=== PATIENT | female | born 1980 | race Caucasian/White ===

== ENCOUNTER 2016-10-09 21:27 | Emergency (ER) | payer SELFPAY ==
[2016-10-09] MEDS ORDERED: IBUPROFEN 800 MG TABLET PO ONE (21:41)
--- NOTE | 2016-10-09 21:42 | ER Document Report ---
ED Medical Screen (RME) - General Stated Complaint: RIGHT FOOT INJURY Mode of Arrival: Ambulatory Information source: Patient Notes: Patient reports getting hit in the foot with a softball yesterday. Right foot is painful and numb hx: None I have greeted and performed a rapid initial assessment of this patient. A comprehensive ED assessment and evaluation of the patient, analysis of test results and completion of the medical decision making process will be conducted by additional ED providers. TRAVEL OUTSIDE OF THE [place] IN LAST 30 DAYS: No - Related Data Allergies/Adverse Reactions: No Known Allergies Allergy (Verified 10/09/16 21:41) Past Medical History Past Surgical History: Reports: Hx Breast Surgery - BREAST REDUCTION - Immunizations Hx Diphtheria, Pertussis, Tetanus Vaccination: Yes Physical Exam - Vital signs Vitals: Temp Pulse Resp BP Pulse Ox 98.2 F 75 18 119/76 96 10/09/16 21:35 10/09/16 21:35 10/09/16 21:35 10/09/16 21:35 10/09/16 21:35 - Extremities General lower extremity: Tender - Right foot Course - Vital Signs Vital signs: Temp Pulse Resp BP Pulse Ox 98.2 F 75 18 119/76 96 10/09/16 21:35 10/09/16 21:35 10/09/16 21:35 10/09/16 21:35 10/09/16 21:35
--- NOTE | 2016-10-10 00:28 | ER Document Report ---
ED Extremity Problem, Lower - General Mode of Arrival: Ambulatory TRAVEL OUTSIDE OF THE [place] IN LAST 30 DAYS: No - HPI Location: Foot Occurred: Other - see HPI - General Chief Complaint: Foot Injury Stated Complaint: RIGHT FOOT INJURY Notes: Patient is a 36-year-old female presenting to the emergency department with complaints of bruising and numbness to her right foot. Patient states that yesterday her foot was hit with a softball. Patient states that she has been resting, icing her foot, and elevating her foot. Patient states she is concerned because her foot feels very numb and she has numbness into her toes. Patient is able to move her foot and ambulate on it. Patient states she does not currently have a PCP but that she was previously going to a doctor in [place]. (TAMEKA MORALES) - Related Data Allergies/Adverse Reactions: No Known Allergies Allergy (Verified 10/09/16 21:41) Past Medical History - General Information source: Patient - Social History Smoking Status: Never Smoker Cigarette use (# per day): No Chew tobacco use (# tins/day): No Frequency of alcohol use: None Drug Abuse: None Family History: None Past Surgical History: Reports: Hx Breast Surgery - BREAST REDUCTION - Immunizations Hx Diphtheria, Pertussis, Tetanus Vaccination: Yes Review of Systems - Review of Systems Constitutional: No symptoms reported EENT: No symptoms reported Cardiovascular: No symptoms reported Respiratory: No symptoms reported Gastrointestinal: No symptoms reported Genitourinary: No symptoms reported Female Genitourinary: No symptoms reported Musculoskeletal: See HPI Skin: See HPI Hematologic/Lymphatic: No symptoms reported Neurological/Psychological: No symptoms reported -: Yes All other systems reviewed and negative Physical Exam - Vital signs Interpretation: Normal - General General appearance: Appears well, Alert In distress: Mild - HEENT Head: Normocephalic, Atraumatic Eyes: Normal Pupils: PERRL Mucous membranes: Moist - Respiratory Respiratory status: No respiratory distress - Cardiovascular Rhythm: Regular - Abdominal Inspection: Normal - Back Back: Normal, Nontender - Extremities General upper extremity: Normal inspection, Normal ROM, Normal strength General lower extremity: Other - good pedis pulses and sensation bilaterally Foot: Ecchymosis - to the medial aspect of the right foot, Other - able to flexion/extension of the right foot as well as move toes on the right foot, patient also has a tattoo to her right foot - Neurological Neuro grossly intact: Yes Cognition: Normal Orientation: AAOx4 [place]aren Coma Scale Eye Opening: Spontaneous Daren Coma Scale Verbal: Oriented [place] Coma Scale Motor: Obeys Commands [place] Coma Scale Total: 15 Speech: Normal - Psychological Associated symptoms: Normal affect, Normal mood - Skin Skin Temperature: Warm Skin Moisture: Dry Course - Re-evaluation Re-evalutation: 10/10/16 Patient with Jackson foot. Otherwise neurovascularly intact. Patient has supportive footwear that she can wear. Patient is able to ambulate on her foot. Stable for discharge. No other injuries. (DORA PRATER) - Vital Signs Vital signs: Temp Pulse Resp BP Pulse Ox 97.8 F 71 16 110/71 98 10/10/16 00:55 10/10/16 00:55 10/10/16 00:55 10/10/16 00:55 10/10/16 00:55 (TAMEKA MORALES) (DORA PRATER) Discharge - Discharge Clinical Impression: Contusion of foot, right Qualifiers: Encounter type: initial encounter Qualified Code(s): S90.31XA - Contusion of right foot, initial encounter Condition: Stable Disposition: HOME, SELF-CARE Instructions: Contusion ([facility]) Forms: Return to Work Scribe Attestation: 10/10/16 05:00 I personally performed the services described in the documentation, reviewed and edited the documentation which was dictated to the scribe in my presence, and it accurately records my words and actions. (DORA PRATER) Scribe Documentation - Scribe Written by Scribe:: Tameka Morales 10/10/16 03:15 acting as scribe for :: Kim
[2016-10-10 00:58] VITALS: BP 110/71
== END 2016-10-10 01:00 | disposition home or self-care (01) ==
LOC: ER 21:27
DX: S90.31XA Contusion of right foot, initial encounter (principal); W21.07XA Struck by softball, initial encounter
CPT/HCPCS: 99283

== ENCOUNTER 2017-03-07 23:10 | Emergency (ER) | payer SELFPAY ==
[2017-03-08] MEDS ORDERED: CEPHALEXIN 500 MG CAPSULE PO ONE (01:38)
--- NOTE | 2017-03-08 01:39 | ER Document Report ---
ED General - General Chief Complaint: Insect Bite Stated Complaint: POSSIBLE INFECTED INSECT BITE Time Seen by Provider: 03/08/17 01:28 Notes: Patient is a 36 year old female who presents with concerns of a rash on her left upper extremity. Describes it as a dull, burning, constant pain. Nothing improves or worsens the pain. States that the area may have started as a bug bite and became subsequently infected. Denies any constitutional symptoms or fever. No history of similar symptoms in the past. She has been trying to treat with Benadryl without improvement. She has not seen her primary care doctor regarding these concerns. TRAVEL OUTSIDE OF THE [place] IN LAST 30 DAYS: No - Related Data Allergies/Adverse Reactions: No Known Allergies Allergy (Verified 10/09/16 21:41) Past Medical History - General Information source: Patient - Social History Smoking Status: Never Smoker Frequency of alcohol use: None Drug Abuse: None Lives with: Spouse/Significant other Family History: Reviewed & Not Pertinent Renal/ Medical History: Denies: Hx Peritoneal Dialysis Past Surgical History: Reports: Hx Breast Surgery - BREAST REDUCTION - Immunizations Hx Diphtheria, Pertussis, Tetanus Vaccination: Yes Review of Systems - Review of Systems Notes: Constitutional: Negative for fever. HENT: Negative for sore throat. Eyes: Negative for visual changes. Cardiovascular: Negative for chest pain. Respiratory: Negative for shortness of breath. Gastrointestinal: Negative for abdominal pain, vomiting or diarrhea. Genitourinary: Negative for dysuria. Musculoskeletal: Negative for back pain. Skin: Positive for rash. Neurological: Negative for headaches, weakness or numbness. 10 point ROS negative except as marked above and in HPI. Physical Exam - Vital signs Vitals: Temp Pulse Resp BP Pulse Ox 98.2 F 69 16 123/78 99 03/07/17 23:39 03/07/17 23:39 03/07/17 23:39 03/07/17 23:39 03/07/17 23:39 Interpretation: Normal Notes: PHYSICAL EXAMINATION: GENERAL: Well-appearing, well-nourished and in no acute distress. HEAD: Atraumatic, normocephalic. EYES: Pupils equal round and reactive to light, extraocular movements intact, sclera anicteric, conjunctiva are normal. ENT: nares patent, oropharynx clear without exudates. Moist mucous membranes. NECK: Normal range of motion, supple without lymphadenopathy LUNGS: Breath sounds clear to auscultation bilaterally and equal. No wheezes rales or rhonchi. HEART: Regular rate and rhythm without murmurs ABDOMEN: Soft, nontender, normoactive bowel sounds. No guarding, no rebound. No masses appreciated. EXTREMITIES: Normal range of motion, no pitting or edema. No cyanosis. NEUROLOGICAL: No focal neurological deficits. Moves all extremities spontaneously and on command. PSYCH: Normal mood, normal affect. SKIN: Warm, Dry, normal turgor, there is a 5 x 3 cm area of erythema on the area of the triceps of the left upper extremity Course - Re-evaluation Re-evalutation: 03/08/17 01:37 Patient presents with symptoms most consistent with an acute cellulitis. Vitals within normal limits. Patient does not meet sepsis criteria is overall very well in appearance. Exam and history are not consistent with DVT. No purulent component to the rash to suggest need of MRSA coverage. Will be started on cephalexin. At this time will discharge with return precautions and follow-up recommendations. Verbal discharge instructions given a the bedside and opportunity for questions given. Medication warnings reviewed. Patient is in agreement with this plan and has verbalized understanding of return precautions and the need for primary care follow-up in the next 24-72 hours. - Vital Signs Vital signs: Temp Pulse Resp BP Pulse Ox 97.7 F 62 18 117/72 99 03/08/17 02:11 03/08/17 02:11 03/08/17 02:11 03/08/17 02:11 03/08/17 02:11 Discharge - Discharge Clinical Impression: Left arm cellulitis Condition: Good Disposition: HOME, SELF-CARE Additional Instructions: The rash is likely due to infection of your skin. You need to take the antibiotics as prescribed. Do not stop even if the rash goes away until you have completed all the antibiotics. The area of redness was traced out here in the emergency department with a marking pen. You need to return to emergency department if the redness spreads outside of this area by more than 2 cm in any direction. You should also return if you develop fevers with temperature greater than 101, persistent vomiting, worsening pain, or have any other symptoms that are concerning to you. Prescriptions: Cephalexin Monohydrate [Keflex 500 mg Capsule] 500 mg PO QID #28 capsule
[2017-03-08 02:12] VITALS: BP 117/72
== END 2017-03-08 02:14 | disposition home or self-care (01) ==
LOC: ER 23:10
DX: L03.114 Cellulitis of left upper limb (principal)
CPT/HCPCS: 99283

== ENCOUNTER 2017-04-05 15:18 | Emergency (ER) | payer SELFPAY ==
--- NOTE | 2017-04-05 16:32 | ER Document Report ---
ED Extremity Problem, Lower - General Chief Complaint: Leg Pain Stated Complaint: LEFT LEG PAIN Time Seen by Provider: 04/05/17 15:49 Mode of Arrival: Ambulatory Information source: Patient Notes: Patient reports the onset last night of left lateral and posterior thigh pain. There is been constant. It is throbbing. It is moderate. She also feels that the leg may be slightly swollen. No previous history of DVTs or PEs. No recent injuries or trauma. No recent surgeries or long travel. The pain does radiate down the left leg. It is worse with movement and better with rest. TRAVEL OUTSIDE OF THE [place] IN LAST 30 DAYS: No - Related Data Allergies/Adverse Reactions: No Known Allergies Allergy (Verified 10/09/16 21:41) Past Medical History - General Information source: Patient - Social History Smoking Status: Never Smoker Frequency of alcohol use: Occasional Family History: Reviewed & Not Pertinent Patient has suicidal ideation: No Patient has homicidal ideation: No Renal/ Medical History: Denies: Hx Peritoneal Dialysis Past Surgical History: Reports: Hx Breast Surgery - BREAST REDUCTION - Immunizations Hx Diphtheria, Pertussis, Tetanus Vaccination: Yes Review of Systems - Review of Systems Constitutional: denies: Chills, Fever Cardiovascular: denies: Chest pain, Palpitations Respiratory: denies: Cough, Short of breath Gastrointestinal: denies: Abdominal pain, Vomiting -: Yes All other systems reviewed and negative Physical Exam - Vital signs Vitals: Temp Pulse Resp BP Pulse Ox 98.2 F 77 18 124/78 99 04/05/17 15:26 04/05/17 15:26 04/05/17 15:26 04/05/17 15:26 04/05/17 15:26 Interpretation: Normal - General General appearance: Appears well, Alert - HEENT Head: Normocephalic, Atraumatic Eyes: Normal Pupils: PERRL - Respiratory Respiratory status: No respiratory distress Chest status: Nontender Breath sounds: Normal Chest palpation: Normal - Cardiovascular Rhythm: Regular Heart sounds: Normal auscultation Murmur: No - Abdominal Inspection: Normal Distension: No distension Bowel sounds: Normal Tenderness: Nontender Organomegaly: No organomegaly - Back Back: Normal, Nontender - Extremities General upper extremity: Normal inspection, Nontender, Normal color, Normal ROM , Normal temperature General lower extremity: Nontender, Normal color, Normal ROM, Normal temperature , Normal weight bearing, Other - Left lower extremity has multiple varicosities. The left lower ext is not tender to palpation.. No: Roman's sign - Neurological Neuro grossly intact: Yes Cognition: Normal Orientation: AAOx4 [place] Coma Scale Eye Opening: Spontaneous Daren Coma Scale Verbal: Oriented Daren Coma Scale Motor: Obeys Commands Daren Coma Scale Total: 15 Speech: Normal Motor strength normal: LUE, RUE, LLE, RLE Sensory: Normal - Psychological Associated symptoms: Normal affect, Normal mood - Skin Skin Temperature: Warm Skin Moisture: Dry Skin Color: Normal Course - Vital Signs Vital signs: Temp Pulse Resp BP Pulse Ox 98.2 F 77 18 124/78 99 04/05/17 15:26 04/05/17 15:26 04/05/17 15:26 04/05/17 15:26 04/05/17 15:26 - Diagnostic Test Radiology reviewed: Image reviewed, Reports reviewed - Time the left lower extremity shows no evidence of clot. Discharge - Discharge Clinical Impression: Leg pain, left Condition: Stable Disposition: HOME, SELF-CARE Instructions: Leg Cramps ([facility]) Additional Instructions: Please follow-up with your doctor if any further concerns. Forms: Elevated Blood Pressure
[2017-04-05 16:42] VITALS: BP 122/81
--- NOTE | 2017-04-05 16:47 | RADIOLOGY REPORT (SQ) ---
EXAM DESCRIPTION: VENOUS UNILATERAL LOWER COMPLETED DATE/TIME: 04/05/2017 4:40 pm REASON FOR STUDY: left leg pain/swelling COMPARISON: None. TECHNIQUE: Dynamic and static brandon scale and color images acquired of the left leg venous system. Se lected spectral images acquired with additional compression and augmentation maneuvers. The contralat eral common femoral vein and saphenofemoral junction were also imaged. Images stored on PACS. LIMITATIONS: None. FINDINGS: COMMON FEMORAL: Normal phasicity, compression and augmentation. No visualized echogenic ma terial on brandon scale. No defects on color images. FEMORAL: Normal compression and augmentation. No visualized echogenic material on brandon scale. No defe cts on color images. POPLITEAL: Normal compression, augmentation. No visualized echogenic material on brandon scale. No defec ts on color images. CALF VESSELS: Normal compression, augmentation. No visualized echogenic material on brandon scale. No de fects on color images. GSV and SSV: Normal compression, augmentation. No visualized echogenic material on brandon scale. No def ects on color images. Reflux noted within the greater saphenous vein. ANY DEEP VENOUS INSUFFICIENCY: Not evaluated. ANY EVIDENCE OF POPLITEAL CYST: No. OTHER: No other significant finding. CONTRALATERAL COMMON FEMORAL VEIN AND SAPHENOFEMORAL JUNCTION: Normal phasicity, compression and augmentation. No visualized echogenic material on brandon scale. No de fects on color images. IMPRESSION: NO EVIDENCE OF DVT OR SVT IN THE LEFT LEG. Reflux noted in the left greater saphenous v ein. TECHNICAL DOCUMENTATION: JOB ID: [id number] [employer]- All Rights Reserved
== END 2017-04-05 16:37 | disposition home or self-care (01) ==
LOC: ER 15:18
DX: I83.812 Varicose veins of left lower extremity with pain (principal)
CPT/HCPCS: 93971; 99283

== ENCOUNTER 2017-07-03 10:52 | Emergency (ER) | payer SELFPAY ==
[2017-07-03 11:05] VITALS: BP 121/76
--- NOTE | 2017-07-03 11:09 | ER Document Report ---
HPI - HPI Patient complains to provider of: itchy rash Onset: Other - several days Quality of pain: No pain Pain Level: Denies Associated Symptoms: None Exacerbated by: Denies Relieved by: Denies - ROS ROS below otherwise negative: Yes Systems Reviewed and Negative: Yes All other systems reviewed and negative - REPRODUCTIVE LMP: not regular Reproductive: DENIES: : - DERM Skin Color: Normal Past Medical History - General Information source: Patient - Social History Smoking Status: Never Smoker Frequency of alcohol use: None Drug Abuse: None Lives with: Spouse/Significant other Family History: Reviewed & Not Pertinent Patient has suicidal ideation: No Patient has homicidal ideation: No - Medical History Medical History: Negative Renal/ Medical History: Denies: Hx Peritoneal Dialysis Past Surgical History: Reports: Hx Breast Surgery - BREAST REDUCTION - Immunizations Hx Diphtheria, Pertussis, Tetanus Vaccination: Yes Vertical Provider Document - CONSTITUTIONAL Agree With Documented VS: Yes Exam Limitations: No Limitations General Appearance: No Apparent Distress - INFECTION CONTROL TRAVEL OUTSIDE OF THE [place] IN LAST 30 DAYS: No - HEENT HEENT: Normal ENT Exam - NECK Neck: Supple - RESPIRATORY Respiratory: Breath Sounds Normal, No Respiratory Distress O2 Sat by Pulse Oximetry: 97 - CARDIOVASCULAR Cardiovascular: Regular Rate, Regular Rhythm - MUSCULOSKELETAL/EXTREMETIES Musculoskeletal/Extremeties: MAEW, FROM - NEURO Level of Consciousness: Awake, Alert, Appropriate - DERM Integumentary: Rash - isolated red papules with some inflammation arms, ankles, waist, between finger and toes, back. Course - Vital Signs Vital signs: Temp Pulse Resp BP Pulse Ox 98.8 F 82 16 121/76 97 07/03/17 11:03 07/03/17 11:03 07/03/17 11:03 07/03/17 11:03 07/03/17 11:03 Discharge - Discharge Clinical Impression: rash, Scabies Condition: Good Disposition: HOME, SELF-CARE Instructions: Acid-Suppressing Medication ([facility]), Antihistamines ([facility]), Anti- Mite Skin Creams, Scabies ([facility]), Steroid Medication Additional Instructions: see roofing apprentice if persists over the counter pepcid 20mg twice a day this week elimite cream from neck to toes, between fingers and toes, wash off in 12 hours Please complete the patient satisfaction survey if you get one, and return it.. If you do not receive a survey, then you can go to the [facility] website, [email or web address] and place your comments about your very good care. Thank you very much. It was a pleasure being your medical provider today. Prescriptions: Hydroxyzine Pamoate 50 mg PO Q4HP PRN #30 capsule PRN Reason: Permethrin [Elimite] 60 gm TP ONCE PRN #1 cream..g. PRN Reason: Prednisone [Deltasone 10 mg Tablet] 10 mg PO ASDIR PRN #21 tablet PRN Reason: Forms: Return to Work Referrals: DIANA AGUILAR, [ACTIVE STAFF] - Follow up as needed
[2017-07-03] MEDS ORDERED: FAMOTIDINE 20 MG TABLET PO ONE (11:15)
[2017-07-03] MEDS ORDERED: PREDNISONE 20 MG TABLET PO ONE (11:15)
== END 2017-07-03 11:31 | disposition home or self-care (01) ==
LOC: ER 10:52
DX: B86 Scabies (principal)
CPT/HCPCS: 99282; J7512